=== PATIENT | female | born 1955 ===

== ENCOUNTER 2020-04-29 08:25 | Outpatient (REF) | payer MEDICARE, SELFPAY ==
--- NOTE | 2020-04-29 11:25 | MHC.AU.P13 ---
Adult Audiological Evaluation Date of Visit: 04/29/20 Reason for Appointment: Audiological re-evaluation to monitor hearing loss. Patient feels that her hearing has decreased and she is not hearing as well with the hearing aids. Does patient feel they have a hearing loss?: Yes If Yes, Which Ear?: Both Ears Has hearing been tested previously?: Yes Previous Hearing Test Results: [facility], 05/01/18- moderate to moderately severe sensorineural hearing loss bilaterally. Ear History: Blocked/Full Sensation in Ear(s): Both Ears Medical History: Medical History: Cancer Medical History (Other): Patient was treated with surgery and radiation for breast cancer in August 2019. Otoscopy: Right Ear: Retracted TM Left Ear: Retracted TM Tympanometry: Right Ear: Negative Middle Ear Pressure (Type C) Left Ear: Negative Middle Ear Pressure (Type C) Hearing Evaluation: Transducer(s) Used: Insert Earphones, Bone Conduction Method: Conventional Audiometry Stimuli Used: Pure Tones Right Ear: Description of Hearing: Moderate to moderately severe sensorineural hearing loss from 250-8000 Hz. Left Ear: Description of Hearing: Moderate to moderately severe sensorineural hearing loss from 250-8000 Hz. Speech Recognition Threshold (SRT): Method Used: Recorded Lists Stimuli Used: Spondee Words Right Ear: 65 dBHL Left Ear: 60 dBHL Word Discrimination: Method: Recorded Lists Word Lists Used: Lista Bisil?bica (Korean) Right Ear: 100% at 90 dBHL Left Ear: 96% at 90 dBHL Comparison: Compared to the most recent evaluation: Thresholds have decreased bilaterally. Compared to most recent evaluation: Slight decreases bilaterally. Recommendations: Recommendations: Audiological re-evaluation in one year. Recommendations (Other): See hearing aid maintenance report for additional hearing aid information. Diagnosis: Primary Diagnosis: H90.3 Bilateral Sensorineural Hearing Loss Secondary Diagnosis: H69.93 Unspecified Eustachian Tube Dysfunction, Bilateral Services Performed: Services Performed: Comprehensive Audiological Evaluation (CPT 29420) Tympanometry (CPT 49736) Signature: Provider: Sobia Leal, MONTEZ-A
--- NOTE | 2020-04-29 11:30 | MHC.AU.P13 ---
Hearing Instrument Follow-Up- Binaural Date of Visit: 04/29/20 Right Ear: Pipe Setter: Oticon Model: Ria2 Pro miniRITE Serial Number: [id number] Battery Size: 312 Envelope Machine Operator: Size 1 60 gain Type of Dome: 8mm linda Type of Wax Guard: Prowax minifit Left Ear: Pipe Setter: Oticon Model: Ria2 Pro miniRITE Serial Number: [id number] Battery Size: 312 Envelope Machine Operator: size 1 60 gain Type of Dome: 8mm linda Type of Wax Guard: Prowax minifit Follow-Up Summary: Hearing aid maintenance performed. Patient was using the 6mm open domes again, which she has been advised not to use or she'll continue to have feedback problems. Switched back to 8mm linda domes bilaterally. Replaced wax guards and vacuumed microphones. Aids are working well. Went to reprogram to today's audiogram and noticed that the aids are at their gain limits for the 60 gain receivers. Want to switch to size 1 85 gain receivers bilaterally, but we did not have any in stock. Ordering these receivers and once they come in, will schedule Ms. Lubin for a hearing aid adjustment to get new receivers attached and to reprogram to today's audiogram. Recommendations: Recommendations (Other): Will call to schedule PATTEN adjustment appointment once new receivers arrive. Diagnosis Code(s): Primary Diagnosis: H90.3 Bilateral Sensorineural Hearing Loss Secondary Diagnosis: H69.93 Unspecified Eustachian Tube Dysfunction, Bilateral Services Performed: Assorted Hearing Aid Service: Hearing Aid Check- Binaural Number of Individual Battery Cells: 42 Signature: Provider: Sobia Leal, CCC-A
== END 2020-04-29 08:26 | disposition home or self-care (01) ==
LOC: HO.SH 08:25
PROVIDERS: Visit Provider Internal Medicine
DX: H90.3 Sensorineural hearing loss, bilateral (principal); H69.93 Unspecified Eustachian tube disorder, bilateral
CPT/HCPCS: 92557; 92567; 92593; V5266

== ENCOUNTER 2020-05-15 10:56 | Outpatient (REF) | payer MEDICARE, SELFPAY | END 2020-05-15 10:57 | disposition home or self-care (01) | LOC: HO.HAP 10:56 | PROVIDERS: PCP Internal Medicine; Referring Provider Internal Medicine; Visit Provider Internal Medicine | DX: Z46.1 Encounter for fitting and adjustment of hearing aid (principal) | CPT/HCPCS: 92700 ==

== ENCOUNTER 2020-07-21 11:01 | Outpatient (REF) | payer MEDICARE, SELFPAY | END 2020-07-21 11:02 | disposition home or self-care (01) | LOC: HO.HAP 11:01 | PROVIDERS: Visit Provider Internal Medicine | DX: Z46.1 Encounter for fitting and adjustment of hearing aid (principal) | CPT/HCPCS: V5266 ==

== ENCOUNTER 2020-09-10 15:32 | Outpatient (REF) | payer MEDICARE, SELFPAY | END 2020-09-10 15:33 | disposition home or self-care (01) | LOC: HO.HAP 15:32 | PROVIDERS: Visit Provider Internal Medicine | DX: Z46.1 Encounter for fitting and adjustment of hearing aid (principal) | CPT/HCPCS: 92593; 99499 ==

== ENCOUNTER 2020-10-23 14:40 | Outpatient (REF) | payer MEDICARE, SELFPAY | END 2020-10-23 14:41 | disposition home or self-care (01) | LOC: HO.HAP 14:40 | PROVIDERS: Visit Provider Internal Medicine | DX: Z46.1 Encounter for fitting and adjustment of hearing aid (principal) | CPT/HCPCS: V5266 ==

== ENCOUNTER 2021-04-01 10:07 | Outpatient (REF) | payer MEDICARE, SELFPAY | END 2021-04-01 10:08 | disposition home or self-care (01) | LOC: HO.HAP 10:07 | PROVIDERS: Visit Provider Internal Medicine | DX: Z46.1 Encounter for fitting and adjustment of hearing aid (principal); H90.3 Sensorineural hearing loss, bilateral | CPT/HCPCS: V5266 ==

== ENCOUNTER 2021-06-29 13:00 | Outpatient (REF) | payer MEDICARE, SELFPAY | END 2021-06-29 13:01 | disposition home or self-care (01) | LOC: HO.HAP 13:00 | PROVIDERS: Visit Provider Internal Medicine | DX: Z46.1 Encounter for fitting and adjustment of hearing aid (principal); H90.3 Sensorineural hearing loss, bilateral | CPT/HCPCS: V5266 ==